=== PATIENT | male | born 1990 | race Caucasian/White ===

== ENCOUNTER 2017-01-02 01:26 | Emergency (ER) | payer MEDICAID ==
[2017-01-02 01:31] VITALS: O2SAT 95
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
[2017-01-02 03:15] VITALS: BP 140/90; PULSE 88; RESP 18; TEMP 97.9
== END 2017-01-02 03:14 | disposition home or self-care (01) ==
DX: S92.351A Displaced fracture of fifth metatarsal bone, right foot, initial encounter for closed fracture (principal); F17.200 Nicotine dependence, unspecified, uncomplicated; W22.8XXA Striking against or struck by other objects, initial encounter; Y93.89 Activity, other specified

== ENCOUNTER 2017-03-16 23:25 | Emergency (ER) | payer SELFPAY ==
[2017-03-16 23:36] VITALS: TEMP 98.4; O2SAT 95
[2017-03-17] MEDS ORDERED: ONDANSETRON DISINTEGRATING 4 MG TAB ONE (00:06)
[2017-03-17] MEDS ORDERED: HYDROGEN PEROXIDE 236 ML BOTTLE TP ONE (00:22)
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
[2017-03-17] MEDS ORDERED: CHLORDIAZEPOXIDE 25MG PREPK#6 BTL TAKEHOME ONE ×2 (00:49→00:53)
[2017-03-17 00:55] VITALS: BP 120/78; PULSE 81; RESP 16
== END 2017-03-17 00:54 | disposition home or self-care (01) ==
LOC: EDUNIT#
DX: S09.90XA Unspecified injury of head, initial encounter (principal); F10.129 Alcohol abuse with intoxication, unspecified; F17.200 Nicotine dependence, unspecified, uncomplicated; W18.09XA Striking against other object with subsequent fall, initial encounter

== ENCOUNTER 2017-04-23 21:02 | Emergency (ER) | payer MEDICAID ==
[2017-04-23 21:15] VITALS: RESP 16
--- NOTE | 2017-04-23 22:04 | EDPHY ---
H & P Time Seen by Provider: 04/23/17 21:36 HPI/ROS: CHIEF COMPLAINT: Left ear discomfort HISTORY OF PRESENT ILLNESS: This is a 26-year-old male presenting to the emergency department complaining of discomfort in his left ear with a possibility of something in his ear. Patient states [place] not sure if he got some kind of weed, seed, or bug in his ear. Denies any ear pain no fever no chills. REVIEW OF SYSTEMS: Constitutional: No fever, no chills. Eyes: No discharge. ENT: No sore throat. Left ear discomfort Cardiovascular: No chest pain, no palpitations. Respiratory: No cough, no shortness of breath. Musculoskeletal: No back pain. Skin: No rashes. Neurological: No headache. Smoking Status: Current every day smoker Physical Exam: General Appearance: Alert and no distress. Non ill-appearing nontoxic Eyes: Pupils equal and round no injection. Bilateral TMs normal non serous. Foreign body noted to left ear canal Respiratory: Nonlabored respiratory effort Cardiac: regular rate and rhythm Musculoskeletal: Neck is supple and nontender. Extremities: full range of motion and are nontender. Skin: No rashes or lesions. Constitutional: Initial Vital Signs Temperature (C) 36.9 C 04/23/17 21:12 Heart Rate 94 04/23/17 21:12 Respiratory Rate 16 04/23/17 21:12 Blood Pressure 114/54 L 04/23/17 21:12 O2 Sat (%) 98 04/23/17 21:12 O2 Delivery Mode Room Air Allergies/Adverse Reactions: No Known Allergies Allergy (Verified 04/23/17 21:15) Home Medications: Medication Instructions Recorded NK [No Known Home Meds] 03/16/17 Medical Decision Making Procedures: Foreign body removal: [place] removed from left ear, no complication. Tympanic membrane normal clear no erythema ED Course/Re-evaluation: Discussed ED plan of care: Ear irrigation 2225: Foreign body a piece of we would removed from left ear canal. Some bleeding noted denies any pain. Discussed discharge instructions with patient-- > stable discharge home Differential Diagnosis: Other differential diagnosis considered but not limited to otitis media, cerumen impaction, and otitis externa Departure - Departure Disposition: Home, Routine, Self-Care Clinical Impression: Foreign body of ear, left Qualifiers: Encounter type: initial encounter Qualified Code(s): T16.2XXA - Foreign body in left ear, initial encounter Condition: Good Instructions: Ear Foreign Body (ED) Additional Instructions: 1. Small piece of weed was removed from rear, you may have some bleeding do not put any Q-Tips or anything in your ear 2. You can take ibuprofen as needed 600 mg every 6-8 hours 3. If at the time your ear becomes more painful you feel it is getting swelling any fever return to the ER Referrals: NONE *PRIMARY CARE P,. [Primary Care Provider] - As per Instructions [facility],. [Clinic] - As per Instructions
[2017-04-23 22:48] VITALS: BP 124/69; PULSE 92; TEMP 97.7; O2SAT 97
== END 2017-04-23 22:47 | disposition home or self-care (01) ==
DX: T16.2XXA Foreign body in left ear, initial encounter (principal); F17.200 Nicotine dependence, unspecified, uncomplicated; X58.XXXA Exposure to other specified factors, initial encounter; Y99.8 Other external cause status

== ENCOUNTER 2017-06-15 13:01 | Emergency (ER) | payer MEDICAID ==
[2017-06-15] MEDS ORDERED: FLUORESCEIN SODIUM 1 MG STRIP OP ONE (13:26)
[2017-06-15] MEDS ORDERED: BUFFERED SALT EYE WASH,STERILE 118 ML OPHT.BTL ONE (13:26)
[2017-06-15] MEDS ORDERED: PROPARACAINE 0.5% 15 ML OPHT DROP ONE (13:26)
[2017-06-15] MEDS ORDERED: OFLOXACIN 0.3% SOLN PREPACK OPHT.BTL TAKEHOME ONE (13:40)
[2017-06-15] MEDS ORDERED: IBUPROFEN 600 MG TAB PO ONE (13:40)
[2017-06-15] MEDS ORDERED: OFLOXACIN 0.3% 5ML OPHT DROPS RTEYE SCH (13:45)
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
[2017-06-15 14:05] VITALS: RESP 16; TEMP 98.2; O2SAT 95
[2017-06-15 14:21] VITALS: BP 130/70; PULSE 85
== END 2017-06-15 14:20 | disposition home or self-care (01) ==
LOC: CED 13:01
DX: S05.01XA Injury of conjunctiva and corneal abrasion without foreign body, right eye, initial encounter (principal); F17.200 Nicotine dependence, unspecified, uncomplicated; W22.8XXA Striking against or struck by other objects, initial encounter

== ENCOUNTER 2018-04-25 13:52 | Emergency (ER) | payer MEDICAID ==
[2018-04-25 14:06] VITALS: BP 118/78
[2018-04-25] MEDS ORDERED: IBUPROFEN 800 MG TAB PO ONE (14:24)
--- NOTE | 2018-04-25 14:27 | EDPHY ---
H & P Stated Complaint: pt says bitten on chin/LUE/L hand by ukn dog yest, dog in quarantine Time Seen by Provider: 04/25/18 14:21 HPI/ROS: HPI: This is a 27-year-old male who presents with Chief Complaint: pt says bitten on chin/LUE/L hand by ukn dog yesterday, dog in quarantine Location: Right chin, left forearm Quality: Dog bite Duration: Yesterday around 8:00 p.m., approximately 18 hr prior to arrival Signs and Symptoms: No bleeding, no radiation, no numbness, no weakness, no tingling, no incontinence, no decreased range of motion, no swelling, + pain, no fever Timing: Acute Severity: [id number] Context: Patient presents with complaints of dog bite on his right chin and left forearm that occurred yesterday around 8:00 p.m. Approximately 18 hr prior to arrival. Patient reports that he took a bath and washed with soap and water. He was walking with his friend who had a dog and beagle type mix came up to them and started to become aggressive and start of fight with his friend' s dog. He reports that he tried to break up the fight and ended up getting bit by the unknown dog. Bystanders called animal Control who quarantine the dog. This incident happened in [facility]. Tetanus booster given in 2011. Denies any radiation, paresthesias, weakness. Modifying Factors: Local wound care Comment: ROS: see HPI Constitutional: No fever, no chills, no weight loss Eyes: No blurred vision Respiratory: No shortness of breath, no cough Cardiovascular: No chest pain Gastrointestinal: No nausea, no vomiting no diarrhea Genitourinary: No dysuria Extremities: No myalgias Neurologic: No weakness, no numbness Skin: No rashes Hematologic: No bruising, no bleeding MEDICAL/SURGICAL/SOCIAL HISTORY: Medical history: kidney stone Surgical history: Tonsillectomy Social history: Current every day smoker. CONSTITUTIONAL: Polite and cooperative adult white male, awake and alert, no obvious distress HEENT: Atraumatic and normocephalic. NECK: supple, no midline tenderness, flexion 45 degrees, extension 45 degrees, right and left lateral flexion 45 degrees. No meningismus. Cardiovascular: Normal S1/S2, regular rate, regular rhythm, without murmur rub or gallop. PULMONARY/CHEST: Symmetrical and nontender. no crepitus. Clear to auscultation bilaterally. Good air movement. No accessory muscle usage. ABDOMEN: Soft, nondistended, nontender, no ecchymosis. PELVIC: no pain with rocking; bilateral hips flexion 125 degrees, extension 30 degrees, with no pain internal rotation and no pain external rotation. BACK: No midline tenderness, no paraspinous spasm, deep tendon reflexes 2/2, no pain with straight leg raise, No foot drop. Achilles reflexes are equal bilaterally. Able to walk on heels and toes without difficulty. EXTREMITIES: 2/2 pulses, strength 5/5, DIP/PIP/MCP flexion/extension intact with good light touch sensation. no deformities, no clubbing, no cyanosis or edema. NEUROLOGICAL: no focal neuro deficits. GCS 15. Light touch sensation intact. SKIN: Warm and dry, superficial puncture abrasions noted to the right chin and left forearm-no active bleeding. no erythema. no rash. Good capillary refill. Source: Patient Exam Limitations: No limitations - Personal History Tetanus Vaccine Date: 2011 - Medical/Surgical History Hx Asthma: No Hx Chronic Respiratory Disease: No Hx Diabetes: No Hx Cardiac Disease: No Hx Renal Disease: No Hx Cirrhosis: No Hx Alcoholism: No Hx HIV/AIDS: No Hx Splenectomy or Spleen Trauma: No Other PMH: TONSILLECTOMY, KIDNEY STONES - Social History Smoking Status: Current every day smoker Constitutional: Initial Vital Signs Temperature (C) 36.7 C 04/25/18 14:03 Heart Rate 89 04/25/18 14:03 Respiratory Rate 16 04/25/18 14:03 Blood Pressure 118/78 04/25/18 14:03 O2 Sat (%) 98 04/25/18 14:03 O2 Delivery Mode Room Air Allergies/Adverse Reactions: No Known Allergies Allergy (Verified 04/25/18 14:06) Home Medications: Medication Instructions Recorded Amoxicillin/Clavulanate Pot 875 mg PO BID #14 tab 04/25/18 [Augmentin 875Mg] Medical Decision Making ED Course/Re-evaluation: Tetanus is current. Animal Control has been notified and the dog is currently in quarantine. Rabies prophylaxis not indicated. Superficial abrasions: Let topical applied and copiously irrigated. Patient given Augmentin in the emergency room and prescription for same. No signs of neurovascular compromise/tenting of skin/compartment syndrome/ extremities and joints examined above and below area of concern and are neurovascularly intact. This patient was seen under the supervision of my secondary supervising physician. I evaluated care for this patient independently. Discussed this patient with Dr. Bates. Differential Diagnosis: Differential diagnosis includes but is not limited to laceration, puncture wound , foreign body, cellulitis. - Data Points Medications Given: Discontinued Medications Amoxicillin/Clavulanate Potassium (Augmentin 875mg) 875 mg PO EDNOW ONE PRN Reason: Protocol Stop: 04/25/18 14:32 Last Admin: 04/25/18 14:38 Dose: 875 mg Ibuprofen (Motrin) 800 mg PO EDNOW ONE Stop: 04/25/18 14:25 Last Admin: 04/25/18 14:39 Dose: 800 mg Tetracaine/Epinephrine/Lidocaine (Let Gel Topical) 1 ea TP EDNOW ONE Stop: 04/25/18 14:38 Last Admin: 04/25/18 14:38 Dose: 1 ea Departure - Departure Disposition: Home, Routine, Self-Care Clinical Impression: Dog bite of head and neck region Dog bite of left upper arm Qualifiers: Encounter type: initial encounter Qualified Code(s): S41.152A - Open bite of left upper arm, initial encounter Condition: Fair Instructions: Amoxicillin/Clavulanate Potassium (By mouth), Animal Bite (ED) Additional Instructions: Wash the site daily with mild soap and water; then pat dry; apply topical antibiotic ointment daily until fully healed. Take Tylenol 650 mg every 4 hours and/or Ibuprofen 600 mg every 8 hours with food as needed for pain. Take Augmentin as directed. Do not skip a dose. Return to the ER immediately if you experience redness, red streaks, have fevers /chills, flu like symptoms, limited range of motion, or any other symptoms that concern you. Referrals: [facility],. [Clinic] - As per Instructions Prescriptions: Amoxicillin/Clavulanate Pot [Augmentin 875Mg] 875 mg PO BID #14 tab
--- NOTE | 2018-04-25 14:28 | EDPHY ---
H & P Stated Complaint: pt says bitten on chin/LUE/L hand by ukn dog yest, dog in quarantine Time Seen by Provider: 04/25/18 14:21 HPI/ROS: CHIEF COMPLAINT: Dog bite HISTORY OF PRESENT ILLNESS: Patient is a 27-year-old man who was bit by a dog yesterday around noon. He is not sure what type of dog it was but it came out of the sta[place] while he was walking his dog. The game farm supervisor was able to catch it and has it for observation. He is up-to-date on his tetanus vaccine. He has small puncture wounds to his right chin and neck and small puncture wound to his left medial biceps region. REVIEW OF SYSTEMS: Constitutional: denies: chills, fever, recent illness, recent injury EENTM: See HPI Respiratory: denies: cough, shortness of breath Cardiac: denies: chest pain, irregular heart rate, lightheadedness, palpitations Gastrointestinal/Abdominal: denies: abdominal pain, diarrhea, nausea, vomiting, blood streaked stools Genitourinary: denies: dysuria, frequency, hematuria, pain Musculoskeletal: denies: joint pain, muscle pain Skin: See HPI Neurological: denies: headache, numbness, paresthesia, tingling, dizziness, weakness Hematologic/Lymphatic: denies: blood clots, easy bleeding, easy bruising Immunologic/allergic: denies: HIV/AIDS, transplant EXAM: GENERAL: Well-appearing, well-nourished and in no acute distress. HEAD: Atraumatic, normocephalic. EYES: Pupils equal round and reactive to light, extraocular movements intact, sclera anicteric, conjunctiva are normal. ENT: TMs normal, nares patent, oropharynx clear without exudates. Moist mucous membranes. NECK: Bite curran see below, Normal range of motion, supple without lymphadenopathy or JVD. LUNGS: Breath sounds clear to auscultation bilaterally and equal. No wheezes rales or rhonchi. HEART: Regular rate and rhythm without murmurs, rubs or gallops. ABDOMEN: Soft, nontender, normoactive bowel sounds. No guarding, no rebound. No masses appreciated. BACK: No CVA tenderness, no spinal tenderness, step-offs or deformities EXTREMITIES: Normal range of motion, no pitting or edema. No clubbing or cyanosis. NEUROLOGICAL: Cranial nerves II through XII grossly intact. Normal speech, normal gait. 5/5 strength, normal movement in all extremities, normal sensation PSYCH: Normal mood, normal affect. SKIN: Puncture wound to right neck and jawline. Not through the platysma. No significant bleeding. No thrill. No sign of foreign body. Puncture wound to left biceps region, slight clear drainage, Source: Patient Exam Limitations: No limitations - Personal History Tetanus Vaccine Date: 2011 - Medical/Surgical History Hx Asthma: No Hx Chronic Respiratory Disease: No Hx Diabetes: No Hx Cardiac Disease: No Hx Renal Disease: No Hx Cirrhosis: No Hx Alcoholism: No Hx HIV/AIDS: No Hx Splenectomy or Spleen Trauma: No Other PMH: TONSILLECTOMY, KIDNEY STONES - Family History Significant Family History: No pertinent family hx - Social History Smoking Status: Current every day smoker Alcohol Use: Sober Constitutional: Initial Vital Signs Temperature (C) 36.7 C 04/25/18 14:03 Heart Rate 89 04/25/18 14:03 Respiratory Rate 16 04/25/18 14:03 Blood Pressure 118/78 04/25/18 14:03 O2 Sat (%) 98 04/25/18 14:03 O2 Delivery Mode Room Air Allergies/Adverse Reactions: No Known Allergies Allergy (Verified 04/25/18 14:06) Home Medications: Medication Instructions Recorded Amoxicillin/Clavulanate Pot 875 mg PO BID #14 tab 04/25/18 [Augmentin 875Mg] Medical Decision Making ED Course/Re-evaluation: Patient has very small puncture wounds that do not appear deep. No palpable foreign body. No sign of infection at this point. I will start him on antibiotics clean and dress his wounds. They would not benefit from suture closure. He is up-to-date on tetanus. The dog is under observation. We will treat with ibuprofen for pain. He declines further workup or testing for this. Differential Diagnosis: Partial list of the Differential diagnosis considered include but were not limited to; dog bite, puncture wound and although unlikely based on the history and physical exam, I also considered penetrating neck injury, foreign body, infection. I discussed these differential diagnoses and the plan with the patient as well as the usual and expected course. The patient understands that the diagnosis is provisional and that in medicine we are not always correct and that further workup is often warranted. Usual and customary warnings were given. All of the patient's questions were answered. The patient was instructed to return to the emergency department should the symptoms at all worsen or return, otherwise to followup with the physician as we discussed. - Data Points Medications Given: Discontinued Medications Amoxicillin/Clavulanate Potassium (Augmentin 875mg) 875 mg PO EDNOW ONE PRN Reason: Protocol Stop: 04/25/18 14:32 Last Admin: 04/25/18 14:38 Dose: 875 mg Ibuprofen (Motrin) 800 mg PO EDNOW ONE Stop: 04/25/18 14:25 Last Admin: 04/25/18 14:39 Dose: 800 mg Tetracaine/Epinephrine/Lidocaine (Let Gel Topical) 1 ea TP EDNOW ONE Stop: 04/25/18 14:38 Last Admin: 04/25/18 14:38 Dose: 1 ea Departure - Departure Disposition: Home, Routine, Self-Care Clinical Impression: Dog bite of head and neck region Dog bite of left upper arm Qualifiers: Encounter type: initial encounter Qualified Code(s): S41.152A - Open bite of left upper arm, initial encounter; W54.0XXA - Bitten by dog, initial encounter; W54.0XXA - Bitten by dog, initial encounter Condition: Fair Instructions: Amoxicillin/Clavulanate Potassium (By mouth), Animal Bite (ED) Additional Instructions: Wash the site daily with mild soap and water; then pat dry; apply topical antibiotic ointment daily until fully healed. Take Tylenol 650 mg every 4 hours and/or Ibuprofen 600 mg every 8 hours with food as needed for pain. Take Augmentin as directed. Do not skip a dose. Return to the ER immediately if you experience redness, red streaks, have fevers /chills, flu like symptoms, limited range of motion, or any other symptoms that concern you. Referrals: [facility],. [Clinic] - As per Instructions Prescriptions: Amoxicillin/Clavulanate Pot [Augmentin 875Mg] 875 mg PO BID #14 tab
[2018-04-25] MEDS ORDERED: AMOXICILLIN/CLAVULANATE POT 875/125 MG TAB PO ONE (14:31)
[2018-04-25] MEDS ORDERED: LET GEL TOPICAL 1 EA SYR TP ONE ×2 (14:37)
== END 2018-04-25 15:20 | disposition home or self-care (01) ==
DX: S41.152A Open bite of left upper arm, initial encounter (principal); S01.85XA Open bite of other part of head, initial encounter; F17.200 Nicotine dependence, unspecified, uncomplicated; W54.0XXA Bitten by dog, initial encounter

== ENCOUNTER 2018-11-06 12:56 | Emergency (ER) | payer MEDICAID ==
[2018-11-06 13:14] VITALS: BP 117/69
--- NOTE | 2018-11-06 13:51 | EDPHY ---
General - History Smoking Status: Current every day smoker Time Seen by Provider: 11/06/18 13:51 Narrative: CLINICAL IMPRESSION: Muscle strain, chest wall pain ASSESSMENT/PLAN: Patient is a 27-year-old male with no significant medical history who presents to the emergency department with left chest wall pain after sustaining a slip and fall on the ice 2 days prior. Patient is afebrile and not toxic-appearing, he is in no acute distress on arrival. His oxygen saturation was 97% on room air and his lungs were clear to auscultation. On physical examination the patient is tender along the anterior left chest wall and pectoralis muscle. Chest x-ray revealed mildly displaced 8th rib fracture on the Right side- patient with remote, known rib fracture at this site which is nontender; CXR revealed no acute rib fractures along the left chest wall, no pneumo/ hemothorax. History and physical exam consistent with left chest wall muscle strain. No evidence of other acute traumatic injury. Patient was given intramuscular Toradol and a lidocaine patch was placed. He will continue Tylenol and/or ibuprofen as needed at home, understands he may also continue lidocaine patch if he feels that has helped him. Patient does not have a primary care provider, I provided a referral for him and he understands the importance of close follow-up for ongoing care. Return precautions discussed- patient will return for significantly worsening or uncontrolled pain, shortness of breath, difficulty breathing, fever or for any other concerning symptom. Patient verbalizes understanding and he is in agreement with this plan. DIFFERENTIAL DX: Differential diagnosis includes but not limited to and in no certain order strain, contusion, fracture, traumatic injury, shoulder injury ED COURSE: CHIEF COMPLAINT: Left chest wall pain HPI: Patient is a 27-year-old male who presents to the emergency department with left chest wall pain after sustaining a slip and fall 2 days prior. Patient reports on Tuesday he slipped on the ice causing him to fall with his left arm outstretched. He did not hit his head, there was no loss of consciousness. Patient reports some generalized anterior chest muscle pain that he feels is related to his pectoralis muscle. The pain has been progressively worsening. He took ibuprofen this morning with very little relief. Patient denies any shoulder pain, shortness of breath or difficulty breathing. He denies any neck or back pain. He has had no abdominal pain. He denies any other complaints or concerns. PAST MEDICAL HISTORY: Denies Family History: Non contributory Social History: Smoker ROS: A full 10 point review of systems was negative except for those mentioned in HPI. PHYSICAL EXAM: General Appearance: Well appearing, no acute distress. HEENT: Normocephalic, atraumatic. External ears normal. TMs are clear bilaterally. Nares clear. Oropharynx clear is no erythema or exudates, no tonsillar hypertrophy or asymmetry. Eyes: PERRLA, no acute vision change, nystagmus, swelling, discharge, pain or photosensitivity. Conjunctiva pink, no pallor or injection. Neck: Supple, nontender, no lymphadenopathy, no midline pain, FROM. Respiratory: There are no retractions, lungs are clear to auscultation bilaterally. Patient with tenderness along the anterior left chest wall into axilla. No bony deformity, ecchymosis or abrasions. Cardiac: Regular rate and rhythm, no murmurs or gallops. Back: No midline thoracic or lumbar spinal tenderness. Full ROM of all spines. Ext: upper and lower extremities nontender with full ROM. Distal pulses intact. Specifically- no left shoulder pain or decreased ROM. Gastrointestinal: Abdomen is soft, nontender, bowel sounds normal, no masses/ hernia, no rigidity, guarding or focal peritoneal findings. Skin: Warm, dry, no rashes, no nodules on palpation. MEDICAL DECISION MAKING: Patient was seen independently. Secondary supervising physician at time of evaluation was Dr. Mackey, he did not evaluate this patient. Diagnosis: Muscle strain, chest wall pain. New, requires workup Summary: See Assessment and Plan for summary of ED visit. Clinical lab tests: N/A. Independent visualization of images, tracing, or specimens: Yes. Decision to obtain medical records or history from someone other than the patient: No Review / Summarize previous medical records: No Discussed patient with another provider: Yes, Dr. Mackey Patient Progress: Stable, discharge. (Evita Owens) Discussion: PHYSICIAN DOCUMENTATION: The patient was evaluated and managed by the Physician Heel Finisher. My co- signature indicates that I have reviewed this chart and I agree with the findings and plan of care as documented. I am the secondary supervising physician. (Otoniel Mackey) - Objective Vital Signs: Initial Vital Signs Temperature (C) 36.7 C 11/06/18 13:10 Heart Rate 78 11/06/18 13:10 Respiratory Rate 16 11/06/18 13:10 Blood Pressure 117/69 11/06/18 13:10 O2 Sat (%) 97 11/06/18 13:10 O2 Delivery Mode Room Air Allergies/Adverse Reactions: No Known Allergies Allergy (Verified 05/10/18 15:36) Home Medications: Medication Instructions Recorded Ofloxacin 0.3% [Ocuflox] 1 - 2 drops RTEYE QID 7 Days btl 05/10/18 oxyCODONE/APAP 5/325 [Percocet 1 - 2 tab PO Q4-6PRN PRN #15 tab 05/10/18 5/325] Medications Given: Discontinued Medications Ketorolac Tromethamine (Toradol) 30 mg IM EDNOW ONE Stop: 11/06/18 14:07 Last Admin: 11/06/18 14:20 Dose: 30 mg Miscellaneous Medication (Icy Hot Lidocaine/Menthol 4%/1% Patch) 1 patch TD EDNOW ONE Stop: 11/06/18 13:59 Last Admin: 11/06/18 14:20 Dose: 1 patch Departure - Departure Disposition: Home, Routine, Self-Care Clinical Impression: Muscle strain Condition: Good Instructions: Muscle Strain (ED), Musculoskeletal Pain (ED) Additional Instructions: DISCHARGE INSTRUCTIONS FROM YOUR DOCTOR Thank you for visiting our emergency department today. Please keep in mind that discharge from the emergency department does not mean that there is nothing wrong - it simply means that we have not identified an emergency condition that requires further evaluation or treatment in the hospital. You should always plan to follow up with primary care for re-evaluation of your condition in the next 2-3 days. Most muscle pain improves quickly with rest and anti-inflammatory medicines. I recommend you follow up with primary care for recheck as soon as possible. Additional evaluation as an outpatient may be needed, and further therapeutic modalities such as chiropractic or PT may be helpful. Rest. Avoid lifting greater than 10-15 pounds. Avoid twisting or prolonged sitting. Movement and gentle walking is good for you. Try to walk for 15-10 minutes on an even surface 3 or 4 times a day as tolerated and increase gentle exercise as your back improves. Apply ice during acute pain phase, later a heating pad set to a low setting or hot tub may be helpful to help relax muscles. Ibuprofen 600 mg every 6-8 hours with food. Stop for stomach upset. Do not exceed 2400 mg in 24 hours. Avoid these medications for the next 8 hours as you received Toradol today in the ED. Salonpas pain patch if you feel this helps you, please follow the instructions on the packaging. You may purchase this [id number] at your local pharmacy. Schedule a follow-up appointment with your primary care physician in the next 2- 3 days for re-evaluation. You may require further treatment, physical therapy and/or further future testing. Return for increased or unmanageable pain, new injury, new midline back pain, numbness, tingling, weakness of your legs, loss of bowel or bladder control, inability to urinate, burning or pain with urination, blood in the urine, fever , chills, abdominal pain, vomiting, difficulty walking, dizziness, fainting, chest pain, shortness of breath, neck pain, neck stiffness, other site of back pain, calf pain, leg redness or swelling, or for any other new, worsening or worrisome symptoms. People present with illnesses and injuries in different ways, and it is always possible that we have missed something. You may always return for re-evaluation if symptoms worsen or if they are not improving or if you develop new/different symptoms. Again, thank you for choosing our emergency department. We hope that you feel better. [facility] has walk-in appointments at the following days/locations. No appointment is needed. Tuesday 8-10:30 AM @ [facility] Tuesday 8-10 AM @ [facility] 2-4 PM @ [facility] Referrals: Carol Be MD [Medical Doctor] - As per Instructions (Please establish care with a primary care provider.)
[2018-11-06] MEDS ORDERED: LIDOCAINE 4%/MENTHOL 1% PATCH TD ONE (13:58)
[2018-11-06] MEDS ORDERED: KETOROLAC 30 MG/1 ML SDV IVP ONE (13:58)
[2018-11-06] MEDS ORDERED: KETOROLAC 30 MG/1 ML SDV IM ONE (14:06)
[2018-11-06] MEDS ORDERED: PATCH REMOVAL 1 EA PATCH TD SCH (21:00)
== END 2018-11-06 14:43 | disposition home or self-care (01) ==
DX: R07.89 Other chest pain (principal); W00.0XXA Fall on same level due to ice and snow, initial encounter; Y92.480 Sidewalk as the place of occurrence of the external cause
CPT/HCPCS: J1885